=== PATIENT | male | born 1955 | race Caucasian/White ===

== ENCOUNTER 2018-02-24 16:12 | Emergency (ER) | payer SELFPAY ==
[~2018-02-24] VITALS: Ht 180.3 cm; Wt 78.0 kg
[2018-02-24 16:15] VITALS: BP 120/67
== END 2018-02-24 17:21 | disposition home or self-care (01) ==
LOC: ER 16:12
DX: M25.551 Pain in right hip (principal); W01.198A Fall on same level from slipping, tripping and stumbling with subsequent striking against other object, initial encounter; Y93.89 Activity, other specified; Y92.89 Other specified places as the place of occurrence of the external cause; R03.0 Elevated blood-pressure reading, without diagnosis of hypertension; F17.210 Nicotine dependence, cigarettes, uncomplicated; Z71.6 Tobacco abuse counseling; Z96.649 Presence of unspecified artificial hip joint
CPT/HCPCS: 99283; 99406

== ENCOUNTER 2018-02-25 07:57 | Emergency (ER) | payer SELFPAY ==
[~2018-02-25] VITALS: Ht 170.2 cm; Wt 79.2 kg
[2018-02-25] MEDS ORDERED: HYDROCODONE/ACETAMINOPHEN 5/325MG TABLET PO ONE (09:30)
[2018-02-25 10:00] VITALS: BP 121/77
== END 2018-02-25 10:05 | disposition home or self-care (01) ==
LOC: ER 09:07
DX: M25.551 Pain in right hip (principal); F17.200 Nicotine dependence, unspecified, uncomplicated; Z96.651 Presence of right artificial knee joint; W01.0XXA Fall on same level from slipping, tripping and stumbling without subsequent striking against object, initial encounter; Y93.89 Activity, other specified; Y92.89 Other specified places as the place of occurrence of the external cause; Y99.8 Other external cause status
CPT/HCPCS: 99282